=== PATIENT | male | born 1945 | race Caucasian/White ===

== ENCOUNTER 2017-10-16 08:30 | Emergency (ER) | payer MEDICARE ==
[~2017-10-16] VITALS: Ht 170.2 cm; Wt 87.5 kg
[~2017-10-16 08:30] MED LIST: ASPI81TA94 PO; ATOR10TA24 PO; CEPH500T7 PO; ENAL2.5T52 PO; LACT1CAP12; METO25TA23 PO; OMEG300C PO; OMEP10CA40 PO; [UNRECOGNIZED DRUG - CODE] MC
--- NOTE | 2017-10-16 08:36 | ER Report ---
History and Physical Time Seen By MD: 08:33 HPI/ROS CHIEF COMPLAINT: wrist injury HISTORY OF PRESENT ILLNESS: This is a 72 year old male. He had an injury this morning while playing tennis. Fell tot he left side and caught himself with his outstretched hand. Pain in the radial aspect of the wrist, more so with motion than pressure. He did finish the match and won the match. Does not have any numbness. Allergies: Coded Allergies: No Known Drug Allergies (Unverified , 10/16/17) Home Meds Reported Medications Acyclovir (ACYCLOVIR) 400 Mg Tablet, 400 MG PO QDAY, TAB 10/16/17 Lactobacillus Combo No.11 (PROBIOTIC) 1 Each Cap.sprink 12/04/16 Aspirin (ASPIRIN) 81 Mg Tab.chew, 81 MG PO QDAY, TAB.CHEW 12/04/16 Mcleod-3 Fatty Acids (FISH OIL) 300 Mg Capsule, 300 MG PO, CAPSULE 12/04/16 Omeprazole (OMEPRAZOLE) 10 Mg Capsule.dr, 10 MG PO PRN, CAP 12/04/16 Acyclovir (ACYCLOVIR) 10 Gm Powder, 10 GM MC 12/04/16 Metoprolol Succinate (METOPROLOL SUCCINATE) 25 Mg Tab.er.24h, 1 TAB PO QDAY, TAB 12/04/16 Enalapril Maleate (ENALAPRIL MALEATE) 2.5 Mg Tablet, 2.5 MG PO QDAY 12/04/16 Atorvastatin Calcium (LIPITOR) 10 Mg Tablet, 0.5 TAB PO QDAY, TAB 12/04/16 Reviewed Nurses Notes: Yes Hx Substance Use Disorder: No Constitutional Vital Sign - Last 24 Hours 10/16/17 10/16/17 08:34 09:55 Temp 98.0 Pulse 70 Resp 20 B/P (MAP) 165/74 140/81 (100) Pulse Ox 95 O2 Delivery Room Air Physical Exam General appearance: alert, no distress. Left extremity: There is no asymmetry. There is no significant swelling. Some tenderness of distal radius. There is no obvious deformity. No tenderness over the anatomic snuff box. No tenderness over the ulnar styloid. No tenderness over the hand and metacarpals. No pain with palpation of the elbow olecranon and radial head. Neurologic exam: The patient has normal sensation distal to the injury. Active range of motion is intact, but with pain. Vascular exam: Normal pulses and capillary refill. Skin: Mild abrasion of the elbow. DIFFERENTIAL DIAGNOSIS: After history and physical exam, differential diagnosis was considered for wrist injury including sprain, fracture, dislocation and soft tissue injury. There is no concern for a possible scaphoid fracture. Medical Decision Making EKG/Imaging Imaging Exam type: WRIST LEFT MIN 3 VIEW History: fall, wrist pain, radial side Comparison: None. Findings: There is no evidence of fracture-dislocation involving the left wrist. There are mild degenerative changes at the left radiocarpal joint. No radiopaque soft tissue foreign body is seen IMPRESSION: 1. No evidence of acute fracture-dislocation involving the left wrist Report Dictated By: Shantel Vargas MD at 10/16/2017 9:10 AM ED Course/Re-evaluation ED Course Discussed the imaging results with the patient. Will use GRANT wrap. The patient has problems taking Ibuprofen, so will stick with Tylenol for pain. Decision to Disposition Date: Oct 16, 2017 Decision to Disposition Time: 09:49 Depart Departure Latest Vital Signs Vital Signs Date Time Temp Pulse Resp B/P (MAP) Pulse Ox O2 Delivery O2 Flow Rate FiO2 10/16/17 09:55 140/81 (100) 10/16/17 08:34 98.0 70 20 95 Room Air Impression: Primary Impression: Left wrist sprain Condition: Improved Disposition: HOME OR SELF-CARE Referrals: SHON SAEZ MD (PCP) Patient Instructions: Wrist Sprain (ED) Additional Instructions: Tylenol as needed for pain. Apply ice 20 minutes every 1-2 hours while awake. An GRANT wrap can be used for compression to help reduce swelling. Rest the injured area, keep it elevated while at rest. Begin gentle range of motion exercises. Problem Qualifiers Primary Impression: Left wrist sprain Encounter type: initial encounter Qualified Codes: S63.502A - Unspecified sprain of left wrist, initial encounter JHONY LANCASTER MD Oct 16, 2017 08:36
[2017-10-16] MEDS ORDERED: ACYC-50 PO (08:40)
--- NOTE | 2017-10-16 09:39 | RADIOLOGY IMAGING REPORT ---
FACILITY: [facility] PATIENT NAME: Andrae Kenny : 1945 MR: [id number] V: [id number] EXAM DATE: ORDERING PHYSICIAN: JHONY LANCASTER TECHNOLOGIST: Location: [facility] [place] Patient: Andrae Kenny : 1945 Visit/Account:[id number] Date of Sevice: 10/16/2017 Exam type: WRIST LEFT MIN 3 VIEW History: fall, wrist pain, radial side Comparison: None. Findings: There is no evidence of fracture-dislocation involving the left wrist. There are mild degenerative c hanges at the left radiocarpal joint. No radiopaque soft tissue foreign body is seen IMPRESSION: 1. No evidence of acute fracture-dislocation involving the left wrist Report Dictated By: Shantel Vargas MD at 10/16/2017 9:10 AM Report E-Signed By: Shantel Vargas MD at 10/16/2017 9:34 AM WSN:[id number]
[2017-10-16 09:55] VITALS: BP 140/81
== END 2017-10-16 09:58 | disposition home or self-care (01) ==
LOC: ER 08:39
DX: S63.502A Unspecified sprain of left wrist, initial encounter (principal)
CPT/HCPCS: 99282

== ENCOUNTER → 2017-10-27 | Outpatient (CLI) | payer MEDICARE ==
[~2017-10-27] MED LIST changes: +ACYC-50 PO
--- NOTE | 2017-10-27 16:16 | RADIOLOGY IMAGING REPORT ---
FACILITY: [facility] PATIENT NAME: Andrae Kenny : 1945 MR: [id number] V: [id number] EXAM DATE: ORDERING PHYSICIAN: SHON SAEZ TECHNOLOGIST: Location: [facility] Patient: Andrae Kenny : 1945 Visit/Account:[id number] Date of Sevice: 10/27/2017 EXAMINATION: Left wrist, 2 views 10/27/2017 1:33 PM HISTORY: Left wrist pain. Fall 2012 days ago. COMPARISON: 10/16/2017 FINDINGS: Visualized bony structures are intact and anatomically aligned without fracture or other a cute osseous abnormality evident. IMPRESSION: Negative left wrist series. Report Dictated By: Da Parry MD at 10/27/2017 4:11 PM Report E-Signed By: Da Parry MD at 10/27/2017 4:12 PM WSN:[id number]
== END ==
LOC: RAD 13:26
PROVIDERS: ATTEND Family Medicine
DX: M25.532 Pain in left wrist (principal)